=== PATIENT | female | born 1970 | race Caucasian/White ===

== ENCOUNTER 2017-12-27 15:19 | Emergency (ER) | payer MEDICAID ==
[~2017-12-27] VITALS: Ht 157.5 cm; Wt 76.0 kg
[2017-12-27 15:38] VITALS: BP 163/92; PULSE 102; RESP 17; TEMP 98.2; O2SAT 99
--- NOTE | 2017-12-27 16:26 | RADRPT ---
EXAM DATE/TIME: 12/27/2017 15:50 [place] COMPARISON: No previous studies available for comparison. INDICATIONS : Lateral left ankle pain and swelling. MEDICAL HISTORY : None. SURGICAL HISTORY : None. ENCOUNTER: Initial ACUITY: 1 day PAIN SCORE: 6/10 LOCATION: Left lateral ankle. FINDINGS: Three view exam was performed of the left ankle. The bony structures are in normal alignment. No ev idence of fracture, dislocation, or periosteal reaction. The ankle mortise is intact. There is mild soft tissue swelling about the lateral aspect of the ankle. No radiopaque foreign bodies are seen. Bony mineralization is normal. CONCLUSION: 1. No fracture seen. 2. Mild lateral soft tissue swelling. German Orlando MD on December 27, 2017 at 16:20 Board Certified Radiologist. This report was verified electronically.
[2017-12-27] MEDS ORDERED: IBUP1TAB7 PO (16:59)
--- NOTE | 2017-12-27 17:01 | PD ---
HPI Chief Complaint: Injury Time Seen by Provider: 16:57 Travel History International Travel<30 days: No Contact w/Intl Traveler<30days: No Traveled to known affect area: No History of Present Illness HPI 47-year-old female presents to the emergency department with complaint of left ankle pain after [place]. Pain is to the lateral aspect. Has been ambulatory on the affected extremity. Denies paresthesias, loss of sensation to the affected extremity. Rates pain 6/10. Took 800 mg of ibuprofen prior to arrival. Pain is worse with ambulation, palpation, movement. Better after ibuprofen. Primary care provider is in [place]. Allergies to tetracycline. Denies significant past medical history. Has no other medical complaints. No other modifying factors or associated signs and symptoms. PFSH Past Medical History Medical History: Denies Significant Hx Tetanus Vaccination: > 5 Years ?: Not Tubal Ligation: Yes Social History Alcohol Use: No Tobacco Use: No Substance Use: No Allergies-Medications (Allergen,Severity, Reaction): Coded Allergies: tetracycline (Verified Allergy, Unknown, 12/27/17) Reported Meds & Prescriptions Reported Meds & Active Scripts Active Ibuprofen 800 Mg Tab 800 Mg PO Q6HR PRN Review of Systems Except as stated in HPI: all other systems reviewed are Neg Physical Exam Narrative GENERAL: Well-nourished, well-developed feet patient, in no acute distress SKIN: Warm and dry. HEAD: Atraumatic. Normocephalic. EYES: Pupils equal and round. No scleral icterus. No injection or drainage. ENT: Mucosa pink and moist. Airway patent. NECK: Trachea midline. CARDIOVASCULAR: Regular rate. RESPIRATORY: No accessory muscle use. GASTROINTESTINAL: Rounded. MUSCULOSKELETAL: Left ankle with point tenderness to the lateral malleolar zone with palpation; swelling to the lateral aspect; no obvious deformity; without erythema, ecchymosis. Left lower extremity is supple and nontense with 2+ pedal pulse and sensory intact. No obvious deformities. No clubbing. No cyanosis. No edema. NEUROLOGICAL: Awake and alert. Oriented 3. No obvious cranial nerve deficits. Motor grossly within normal limits. Normal speech. PSYCHIATRIC: Appropriate mood and affect; insight and judgment normal. Data Data Last Documented VS Vital Signs Date Time Temp Pulse Resp B/P (MAP) Pulse Ox O2 Delivery O2 Flow Rate FiO2 12/27/17 15:38 98.2 102 17 163/92 (115) 99 Orders Orders Ankle, Complete ([id number]) (12/27/17 ) Splint Or Brace Apply/Monitor (12/27/17 16:57) Crutches (12/27/17 16:57) Ed Discharge Order (12/27/17 17:01) Brace Ankle Stirrup (12/27/17 ) MDM Medical Decision Making Medical Screen Exam Complete: Yes Emergency Medical Condition: Yes Medical Record Reviewed: Yes Differential Diagnosis Sprain, fracture, dislocation Narrative Course 47-year-old female with left ankle injury. Took ibuprofen 800 mg prior to arrival. Left ankle x-ray ordered in triage. 1658: Left ankle x-ray concludes: Ankle X-Ray 12/27/17 0000 Signed Impressions: Service Date/Time: Wednesday, December 27, 2017 15:50 - CONCLUSION: 1. No fracture seen. 2. Mild lateral soft tissue swelling. German Orlando MD Patient provided a copy of the x-ray report. Tank bandage, ankle stirrup splint , crutches provided for support. Instructed patient to follow-up outpatient if her symptoms persist greater than 7-10 days. Ibuprofen prescribed for home. Instructed patient to follow up with primary care provider. Patient verbalizes understanding and agreement with treatment plan. Patient is medically cleared and stable for discharge. Discussed reasons to return to the emergency department. Patient agrees with treatment plan. The patients vital signs are stable and the patient is stable for outpatient follow-up and treatment. Patient discharged home, stable and in no acute distress. Diagnosis Primary Impression: Left ankle injury Qualified Codes: S99.912A - Unspecified injury of left ankle, initial encounter Referrals: Primary Care Physician Patient Instructions: Ankle Sprain (ED), Ankle Stirrup Splint (ED), Crutch Instructions (ED), General Instructions Additional Instructions: Tylenol or ibuprofen as directed and as needed for pain and inflammation Rest, ice, compress, and elevate extremity to decrease pain and inflammation Ankle Brace for support Crutches for support Avoid aggravating activity; increase activity as tolerated Follow-up with primary care provider Follow-up outpatient if symptoms persist greater than 7-10 days Return to the emergency department immediately with worsening of symptoms Med/Other Pt SpecificInfo: Prescription(s) given Scripts Ibuprofen (Ibuprofen) 800 Mg Tab 800 MG PO Q6HR Y for PAIN, #30 TAB 0 Refills Prov: Ewa Fabian 12/27/17 Disposition: 01 DISCHARGE HOME Condition: Stable Ewa Fabian Dec 27, 2017 17:01
== END 2017-12-27 17:27 | disposition home or self-care (01) ==
LOC: NEPK 15:19
DX: S99.912A Unspecified injury of left ankle, initial encounter (principal); X50.1XXA Overexertion from prolonged static or awkward postures, initial encounter; Y92.832 Beach as the place of occurrence of the external cause
CPT/HCPCS: 73610; 99283; E0113; L1906